=== PATIENT | female | born 1985 | race Two or more races ===

== ENCOUNTER → 2016-10-10 | Emergency (ER) | payer OTHER ==
[~2016-10-10] MED LIST: Lidocaine 1% Inj (20ml) ONE; Oxytocin 30 units/LR 500ML 500 ML IV ONE
--- NOTE | 2016-10-10 17:58 | OBHP ---
Datetime: 10/10/2016 17:45 IP Adm Impression: Term, intrauterine ; No Active Labor IP Admit Plan: Discharge home Admit Comment, IP Provider: IUP at 37w c/o passing some blood/brown discharge at 3:30pm...no CT X. no SROM; +FM PMH: denies PSH: [place] Allergy: seafood PSoH: denies smoking, drugs ETOH A: IUP at 37w not in active labor bloody show noted/not active VB P: dicharge home labor instructions; pre-eclampsia warning. Abdomen - PN: Normal Back - PN: Normal Breast - PN: Not Done Lungs - PN: Normal Heart - PN: Normal Thyroid - PN: Normal Neurologic - PN: Normal HEENT - PN: Normal General - PN: Normal Presentation-Admit: Vertex FHR - Baseline A Provider: 120 Membranes, Provider: Intact Contraction Comments Provider: occ Comments, ACOG Physical Exam: ROS: General - no fatigue HEENT: No PINO; no visual disturbance CV: no CP; no palpitations RESP: No Cough; no SOB GI: No N/V/D : No F/U/D MS: no joint pain Pool Provider: Negative IP Hx Assessment: The History has been Reviewed and is Current EGA AdmitDate IP: 37.0 IP Chief Complaint: Uterine contractions NICHD Variability Prov Fetus A: Moderate 6-25bpm NICHD Accel Fetus A IP Provider: 15X15 FHR Category Provider Fetus A: Category I NICHD Decel Fetus A IP Provider: None Dilatation, Provider: 1 Effacement, Provider: 0 Station, Provider:
--- NOTE | 2016-10-10 18:00 | OBDCSUM ---
Datetime: 10/10/2016 17:56 Discharged to, Provider: Home Follow up at, Provider: Dr Vasquez Disch Instr Activity: Normal activity Disch Instr Diet: Regular Discharge Diagnosis, Provider: Griffin Labor - Undelivered Discharge Time: 10/10/2016 17:56 Follow up in weeks, Provider: next week Disch Referrals: None
== END | disposition home or self-care (01) ==
LOC: H.EROB2 16:54
DX: O47.1 False labor at or after 37 completed weeks of gestation (principal); Z3A.37 37 weeks gestation of pregnancy

== ENCOUNTER 2016-10-11 19:05 | Inpatient (IN) | payer OTHER ==
[2016-10-11 19:32] VITALS: BMI 28.3
[2016-10-11 20:15] LABS: BASO % 0.3 % (0.0-2.0); EOS # 0.1 K/uL (0.0-0.7); EOS % 0.7 % (0.0-4.0); HEMATOCRIT 36.2 % (34.0-47.0); LYMPH # 1.7 K/uL (1.0-4.3); LYMPH % 13.3 % (20.0-40.0); MEAN CELL VOLUME 96.7 fl (81.0-99.0); MEAN CORPUSCULAR HEMOGLOBIN 32.3 pg (27.0-31.0); MEAN CORPUSCULAR HGB CONC 33.4 g/dL (33.0-37.0); MEAN PLATELET VOLUME 9.3 fl (7.2-11.7); MONO # 0.8 K/uL (0.0-0.8); MONO % 6.4 % (0.0-10.0); NEUT % 79.3 % (50.0-75.0); RED CELL DISTRIBUTION WIDTH 13.7 % (11.5-14.5); WHITE BLOOD COUNT 12.6 K/uL (4.8-10.8)
--- NOTE | 2016-10-11 23:46 | OBHP ---
Datetime: 10/11/2016 23:41 IP Adm Impression: Term, intrauterine IP Admit Plan: Admit to unit Admit Comment, IP Provider: The patient is a 31-year-old 1 para 0 estimated gestational age 37 weeks patient presents to labor and delivery for induction of labor secondary to oligohydramnios. Patient reports good movement no vaginal bleeding and no leakage of fluid. This is car e has been unremarkable. Past medical history none Past surgical history none No known drug allergies Social history denies alcohol tobacco use Allergic to shellfish Review of systems patient denies headache chest pain shortness of breath palpitations constipation dysuria vaginal bleeding heat or cold intolerance easy bruisability musculoskeletal or neurological complaints Vital signs stable afebrile Physical exam see notes Intrauterine at 37 weeks oligohydramnios LIZZIE of 2 Patient for induction of labor Adequate pelvis, vertex presentation, estimated weight 7 pounds Admit, routine labs, external monitor, anticipate normal vaginal delivery Pelvic Type - PN: Adequate Extremities - PN: Normal Abdomen - PN: Normal Back - PN: Normal Breast - PN: Not Done Lungs - PN: Normal Heart - PN: Normal Thyroid - PN: Normal Neurologic - PN: Normal HEENT - PN: Normal General - PN: Normal Weight - Estimated: 7 Presentation-Admit: Vertex FHR - Baseline A Provider: 145 Gestation - Est Wks by US: 37.0 EGA AdmitDate IP: 37.1 Vital Signs Provider: Reviewed IP Chief Complaint: Other NICHD Variability Prov Fetus A: Moderate 6-25bpm NICHD Accel Fetus A IP Provider: 15X15 FHR Category Provider Fetus A: Category I NICHD Decel Fetus A IP Provider: None Dilatation, Provider: 2 Effacement, Provider: 50 Station, Provider: -3 Genitourinary Exam: Normal DTRs - PN: Normal
[2016-10-12] MEDS ORDERED: Lactated Ringer's 1,000 ML IV SCH ×2 (00:15→01:10)
[2016-10-12] MEDS ORDERED: Fentanyl/Bupivacaine HCl 250 ML EPI ONE (00:30)
[2016-10-12] MEDS ORDERED: Oxycodone/Acetaminophen 5/325 mg Tab PO PRN ×4 (04:01→05:31)
--- NOTE | 2016-10-12 04:04 | OBDS ---
MATERNAL INFORMATION Placenta Cultured: No Provider Comments: Delivered live baby boy at 3:36 AM the baby was bulb suctioned on the perineum an d transferred to the maternal chest. The cord was clamped and cut 3 vessels noted cord blood was obta ined and sent to the lab. The placenta was delivered at 3:48 AM intact. The estimated blood loss was 200 mL there was a first-degree vaginal laceration which was repaired with 2-0 rapide. The mother gage erated the procedure well baby to the well baby nursery with Apgars of 9 and 9 LABOR SUMMARY EDC: 10/31/2016 00:00 No. Babies in Womb: 1 Attempted: No LABOR INFORMATION Reason for Induction: Oligohydramnios Cervical Ripening Agents: Cervidil Group B Beta Strep: Negative Steroids Given: None Reason Steroids Not Administered: Not Applicable MEMBRANES Membranes Rupture Method: Spontaneous Rupture of Membranes: 10/12/2016 23:45 Amniotic Fluid Color: Clear Amniotic Fluid Amount: Moderate Amniotic Fluid Odor: Normal VAGINAL DELIVERY Episiotomy: None Laceration Extension: First Degree Laceration Type: Vaginal Laceration Repair Note: repaired with 2.0 rapide Sponge Count Correct: Yes Sharps Count Correct: Yes BABY A INFORMATION Born in Route : No : N/A Forceps: N/A PRESENTATION/POSITION BABY A Presentation: Cephalic Breech Presentation: N/A INFANT INFORMATION BABY A Gestational Age at Delivery: 37.0
[2016-10-12] MEDS ORDERED: Oxytocin 30 units/LR 500ML 500 ML IV SCH (04:15)
[2016-10-12] MEDS: Lansinoh for Breast Feeding Mothers TP SCH (17:11)
[2016-10-13 07:32] LABS: HEMATOCRIT 33.9 % (34.0-47.0); MEAN CELL VOLUME 97.8 fl (81.0-99.0); MEAN CORPUSCULAR HEMOGLOBIN 31.9 pg (27.0-31.0); MEAN CORPUSCULAR HGB CONC 32.7 g/dL (33.0-37.0); WHITE BLOOD COUNT 12.1 K/uL (4.8-10.8)
[2016-10-13] MEDS: Lansinoh for Breast Feeding Mothers TP SCH ×2 (09:57→16:35)
[2016-10-14] MEDS: Lansinoh for Breast Feeding Mothers TP SCH ×2 (03:22→08:44)
== END 2016-10-14 20:46 | disposition home or self-care (01) | DRG 775 ==
LOC: H.EROB2 19:05 → H.L&D 19:32 → H.OB/GYN 10-12 05:50
PROVIDERS: ADMIT Obstetrics & Gynecology Gynecology; ATTEND Obstetrics & Gynecology Gynecology
PROC: 4A1HXCZ Monitoring of Products of Conception, Cardiac Rate, External Approach (ICD-10-PCS; 2016-10-11)
PROC: 10E0XZZ Delivery of Products of Conception, External Approach (ICD-10-PCS; principal; 2016-10-12)
PROC: 0HQ9XZZ Repair Perineum Skin, External Approach (ICD-10-PCS; 2016-10-12)
DX: O41.03X0 Oligohydramnios, third trimester, not applicable or unspecified (principal); O70.0 First degree perineal laceration during delivery; Z37.0 Single live birth; Z3A.37 37 weeks gestation of pregnancy; Z91.013 Allergy to seafood

== ENCOUNTER 2016-10-15 19:24 | Emergency (ER) | payer OTHER ==
[2016-10-15 19:24] VITALS: BMI 28.3
[2016-10-15 19:54] VITALS: BP 133/85; PULSE 98; RESP 16; TEMP 98.7; O2SAT 100
--- NOTE | 2016-10-15 21:00 | ED PDOC ---
HPI: Skin/Bite Injury Time Seen by Provider: 10/15/16 20:00 Chief Complaint (Nursing): Fever Chief Complaint (Provider): Breast-Related Issue History Per: Patient History/Exam Limitations: no limitations Onset/Duration Of Symptoms: Days (x1) Current Symptoms Are (Timing): Still Present Location Of Injury: Right: Chest (breasts), Left: Chest Quality Of Symptoms: Painful, Swollen Additional Complaint(s): 31 year old female presents to ED with complaints of breast pain x1 day and recently gave x4 days ago. Patient states she has a hard time producing milk and notes a fever and swelling to her breasts. Denies erythema to the area. Notes she was in the hospital yesterday due to the baby not eating well, resulting in her not pumping in the last day. (-) sore throat, rhinorrhea , vomiting, or diarrhea. PCP: None Past Medical History Reviewed: Historical Data, Nursing Documentation, Vital Signs Vital Signs: Last Vital Signs Temp 98.7 F 10/15/16 19:49 Pulse 98 H 10/15/16 19:49 Resp 16 10/15/16 19:49 BP 133/85 10/15/16 19:49 Pulse Ox 100 10/15/16 21:05 - Medical History PMH: No Chronic Diseases - Surgical History Surgical History: No Surg Hx - Family History Family History: States: Unknown Family Hx - Living Arrangements Living Arrangements: With Family - Social History Alcohol: None - Immunization History Hx Tetanus Toxoid Vaccination: No Hx Influenza Vaccination: No - Home Medications Home Medications: Ambulatory Orders Medication Instructions Recorded Pnv95/Ferrous Fumarate/FA 1 tab PO DAILY 10/12/16 [Prenavite] - Allergies Allergies/Adverse Reactions: Allergies Allergy/AdvReac Type Severity Reaction Status Date / Time some seafood Allergy RASH Uncoded 10/15/16 19:49 Review of Systems ROS Statement: Except As Marked, All Systems Reviewed And Found Negative Constitutional: Positive for: Fever Skin: Positive for: Other (Swelling/pain to breasts) Physical Exam - Reviewed Nursing Documentation Reviewed: Yes Vital Signs Reviewed: Yes - Physical Exam Appears: Positive for: Non-toxic, No Acute Distress Skin: Positive for: Normal Color, Warm, Dry ENT: Positive for: Normal ENT Inspection Neck: Positive for: Normal Cardiovascular/Chest: Positive for: Regular Rate, Rhythm, Other ([employer]: ROXANE Macario. Normal lactating breasts.). Negative for: Murmur Respiratory: Negative for: Respiratory Distress Gastrointestinal/Abdominal: Positive for: Normal Exam Neurologic/Psych: Positive for: Alert, Oriented - ECG O2 Sat by Pulse Oximetry: 100 (RA) Pulse Ox Interpretation: Normal Medical Decision Making Medical Decision Makin Initial plan: Provider has explained to patient to continue pumping milk to relieve pain and to continue to produce milk. Patient is medically stable and ready for discharge. Counseling has been provided and pt is in agreement. Return if symptoms persist or acutely worsen. Scribe Attestation: Documented by Sydnee Lundberg acting as a scribe for Migue Cohen MD. Scribe Attestation: All medical record entries made by the Scribe were at my direction and personally dictated by me. I have reviewed the chart and agree that the record accurately reflects my personal performance of the history, physical exam, medical decision making, and the department course for this patient. I have also personally directed, reviewed, and agree with the discharge instructions and disposition. Disposition - Clinical Impression Clinical Impression: problem, Breast pain, Engorgement of breast - Patient ED Disposition Is Patient to be Admitted: No Doctor Will See Patient In The: Office Counseled Patient/Family Regarding: Studies Performed, Diagnosis, Need For Followup - Disposition Referrals: Anand Huynh MD [Staff Provider] - Disposition: Routine/Home Disposition Time: 20:30 Condition: GOOD Instructions: Breast Care for the Breast Feeding Mother (ED)
== END 2016-10-15 20:43 | disposition home or self-care (01) ==
LOC: H.ER 19:24
DX: R50.9 Fever, unspecified (principal); N64.4 Mastodynia